=== PATIENT | female | born 1960 | race Caucasian/White ===

== ENCOUNTER 2017-01-28 08:42 | Inpatient (IN) | payer BC ==
[~2017-01-28] VITALS: Ht 162.6 cm; Wt 67.6 kg
[2017-01-28 08:42] VITALS: BP_SYST 124
[~2017-01-28 08:42] MED LIST: ESCI20TA PO; IMI50 SQ; LIDP TP; LORA-258 PO; OXYSR10 PO; PRO40 PO; SER100 PO; TOPI100T11 PO
--- NOTE | 2017-01-28 08:42 | NUR ---
Pt report received from HERBERT Miranda.
--- NOTE | 2017-01-28 08:42 | NUR ---
# 20 gauge angiocath placed to LFA. Use of asceptic technique. Opsite placed over site. Blood return noted. Blood for lab drawn from site. Flushed with 10 cc of normal saline. No evidence of infiltration noted. Patient tolerated well.
--- NOTE | 2017-01-28 08:42 | NUR ---
Arrived via S ambulance. jewel stringer reported compliant as per son to be anxiety. Patient states that she has been dizzy for 4 days with vomiting. Today she developed some weakness and fell with head strike on dresser, no evidence of trauma. Patient ambulated 50ft with feeling weak every 5-10 then nearly falling to ground and then standing up and walking steadily, no clear ataxia. Patient to ER bed 6 to gown for evaluation. Side rails up. Report given to Renzo GODINEZ.
[2017-01-28] MEDS ORDERED: MECLIZINE HCL 25 MG TABLET (ANITVERT) PO ONE (08:45)
[2017-01-28] MEDS ORDERED: METOCLOPRAMIDE HCL 10 MG/2 ML VIAL IVP ONE (08:45)
[2017-01-28] MEDS ORDERED: EXEM25TA5 PO (09:02)
[2017-01-28] MEDS ORDERED: ONDA4TAB22 PO (09:02)
[2017-01-28] MEDS ORDERED: BUPR1FIL3 SL (09:02)
[2017-01-28] MEDS ORDERED: TRAZ-126 PO (09:02)
[2017-01-28] MEDS ORDERED: GABA-533 PO (09:02)
[2017-01-28] MEDS ORDERED: CHOL100038 PO (09:02)
[2017-01-28] MEDS ORDERED: MAGN250T31 PO (09:02)
[2017-01-28] MEDS ORDERED: VIS50 PO (09:02)
[2017-01-28] MEDS ORDERED: ONAB200V IJ (09:02)
[2017-01-28] MEDS ORDERED: POTA20TA83 PO (09:02)
[2017-01-28] MEDS ORDERED: BUPR300T55 PO (09:02)
--- NOTE | 2017-01-28 09:02 | NUR ---
Medication reconciliation completed with information provided by PTS SON. Any prior medication reconciliation on file was reviewed and corrected.
[2017-01-28 09:09] LABS: BASOPHILS # (AUTO) 0.1 K/uL (0.0-0.2); BASOPHILS % (AUTO) 0.9 % (0.0-2.0); EOSINOPHILS # (AUTO) 0.1 K/uL (0.0-0.4); EOSINOPHILS % (AUTO) 1.8 % (0.0-4.0); HEMATOCRIT 42.1 % (36-48); HEMOGLOBIN 13.7 g/dL (12.0-16.0); LYMPHOCYTES # (AUTO) 1.4 K/uL (1.0-5.5); MEAN CORPUSCULAR HEMOGLOBIN 29 pg (27-31); MEAN CORPUSCULAR HGB CONC 33 % (32-36); MEAN CORPUSCULAR VOLUME 89 fL (79.0-98.0); MONOCYTES # (AUTO) 0.3 K/uL (0.0-1.0); MONOCYTES % (AUTO) 4.9 % (1.7-9.3); NEUTROPHILS # (AUTO) 4.3 K/uL (1.8-7.7); NEUTROPHILS % (AUTO) 70.4 % (40.0-70.0); PLATELET COUNT (AUTO) 137 K/uL (130-430); RED BLOOD CELL COUNT(AUTO) 4.74 MIL/uL (4.2-6.2); RED CELL DISTRIBUTION WIDTH 13.5 % (9.0-15.0); WHITE BLOOD COUNT (AUTO) 6.2 K/uL (4.8-10.8)
--- NOTE | 2017-01-28 09:10 | NUR ---
Portable CXR complete.
[2017-01-28 09:21] LABS: PROTHROMBIN TIME 10.7 SECS (9.5-12.5)
--- NOTE | 2017-01-28 09:34 | NUR ---
Pt to CT.
[2017-01-28 09:39] LABS: CREATININE 0.81 mg/dL (0.55-1.30); POTASSIUM 3.6 mmol/L (3.5-5.1)
--- NOTE | 2017-01-28 09:41 | NUR ---
Pt returns from CT. No needs verbalized at this time.
[2017-01-28 09:43] LABS: ALBUMIN 3.5 g/dL (3.4-4.8); TOTAL BILIRUBIN 0.5 mg/dL (0.0-1.0)
--- NOTE | 2017-01-28 10:50 | NUR ---
Patient will be admitted to care of Dr. Dave. Admitted to Tele unit. Will go to room 135. Belongings list completed. Summary report printed. Bedside report given to receiving RN.
--- NOTE | 2017-01-28 10:52 | NUR ---
Admission Note Received patient from ER with diagnosis of Ataxia. Initial Plan of Care discussed-patient verbalized understanding. Family at bedside. Oriented to room, call light, pain management and safety.
[2017-01-28 11:07] VITALS: BP_SYST 125
--- NOTE | 2017-01-28 11:08 | NUR ---
NEURO CONSULT Spoke with Leanna regarding request for consultation with Dr. Carter ([phone]) for reason: ataxia.
--- NOTE | 2017-01-28 11:35 | NUR ---
REPLACED PATIENT HEART MONITOR LEADS.
--- NOTE | 2017-01-28 11:49 | NUR ---
PATIENT LABS UNREMARKABLE. HEAD CT NEGATIVE. HISTORY OF MEDICATIONS WHICH HAVE SIDE EFFECTS. STANDING NORMALLY ON HER OWN STRENGTH IN RESTROOM ON PLACEMENT IN 114A. BILLING CHECKER NOTES LEFT HAND SHAKING. BLOOD GLUCOSE WAS 96 MG/DL. ADMISSION NURSE ALSO NOTES HISTORY OF DRY MOUTH LAST TWO DAYS.
--- NOTE | 2017-01-28 11:59 | NUR ---
CALL TO DIETARY RE: MENU REQUEST. KATIE WILL COME TO UNIT AND ASSIST PATIENT PICK HER LUNCH CHOICE.
--- NOTE | 2017-01-28 12:04 | NUR ---
REVIEW OF MEDICATION RECONCILIATION. SEROQUEL MATCHES THE LIST OF SIDE EFFECTS DESCRIBED.
--- NOTE | 2017-01-28 12:10 | NUR ---
KATIE [facility] AT PATIENT BEDSIDE TAKING ORDER AND PROVIDING LISTENING.
--- NOTE | 2017-01-28 12:25 | NUR ---
ASSIST OF PATIENT TO COMMODE. YELLOW CLEAR NON ODOROUS URINE OUT.
--- NOTE | 2017-01-28 13:26 | NUR ---
CALL TO MD BECAUSE PATIENT REQUESTING IN LAST 30 MINUTES TO START ALL OF HER MEDICATIONS. NOTIFIED MD OF PATIENT REQUEST AND MED LIST COMPLEXITY. MD TO REVIEW WITHIN 10 MINUTES.
[2017-01-28] MEDS ORDERED: ONDANSETRON 4 MG ODT TAB PO PRN (14:00)
[2017-01-28] MEDS ORDERED: POTASSIUM CHLORIDE 20 MEQ TAB.PRT.SR PO SCH (14:00)
[2017-01-28] MEDS ORDERED: SUMAtriptan SUCCINATE 6 MG/0.5 ML VIAL SUBCUT PRN (14:00)
[2017-01-28] MEDS ORDERED: PANTOPRAZOLE SODIUM 40 MG TAB PO ONE (14:15)
[2017-01-28] MEDS ORDERED: CITALOPRAM HYDROBROMIDE 20 MG TABLET PO ONE (14:15)
[2017-01-28] MEDS ORDERED: buPROPion HCL 150 MG XL TAB PO ONE (14:15)
[2017-01-28] MEDS ORDERED: LIDOCAINE PATCH 5% 1 EA TP ONE (14:30)
--- NOTE | 2017-01-28 14:31 | NUR ---
PATIENT ROUNDS. REQUEST FOR ZOFRAN. AFTERWARD WHEN ZOFRAN BROUGHT IN PATIENT REQUEST TO HAVE PROTONIX INSTEAD. NOTIFIED ALREADY PASSED PROTONIX. NOTIFIED PATIENT ABOUT THIS. VERBALIZES UNDERSTANDING.
--- NOTE | 2017-01-28 15:35 | NUR ---
MD MESSAGE GIVEN FROM PATIENT ABOUT SIDE EFFECTS OF GENERIC MEDICATION HAVING SOME ROLE IN HER DECLINE. SHE WANTED MD TO KNOW. NOTES THE PT IS RIGHT IN REGARD TO PSYCHIATRIC GENERICS.
[2017-01-28] MEDS: GABAPENTIN 300 MG CAPSULE PO SCH ×2 (15:39→21:59)
[2017-01-28] MEDS: GABAPENTIN 400 MG CAPSULE PO SCH ×2 (15:40→21:59)
--- NOTE | 2017-01-28 16:02 | NUR ---
ROUNDS AND SNACK OFFERED TO PATIENT.
[2017-01-28] MEDS ORDERED: CHOLECALCIFEROL (VITAMIN D3) 2,000 UNIT TABLET PO SCH (17:00)
--- NOTE | 2017-01-28 17:33 | NUR ---
PATIENT SLEEPING AT THIS TIME.
[2017-01-28 18:24] VITALS: BP_SYST 128
[2017-01-28] MEDS ORDERED: FAMOTIDINE 20 MG TABLET PO ONE (19:00)
--- NOTE | 2017-01-28 19:01 | NUR ---
Consult Called Reason for Consultation: ATAXIA Was consult called? Yes Person who was notified:Jojo Consulting Physician: Teo Carter MD Instrument Repairer Helper Specialty: Neurology Instrument Repairer Helper
[2017-01-28 19:30] VITALS: BP_SYST 140
--- NOTE | 2017-01-28 19:31 | NUR ---
HANDOFF ROUNDS. PATIENT ASKING ABOUT ANXIETY MEDICATION FOR SWALLOWING. SAYS SHE TAKES ATIVAN AT INCREASED DOSE 5MG. SAYS HER DOCTORS ARE ALWAYS AMAZED AT HOW MUCH ANESTHESIA IT TAKES FOR HER TO SLEEP DURING SURGERY.
--- NOTE | 2017-01-28 19:40 | NUR ---
INITIAL NOTE Patient alert, awake, verbally responsive with confusion. Respiration even and unlabored. Skin warm and dry to touch. SL intact to LFA, no redness, no swelling. Patient asked Ativan and stated that 5mg was the usual dose that she took. Will check with MD's ordered. Discussed the safety issue, use call light when need help, and plan of care, verbally understanding. Safety measure maintained. Call light within reached. Bed in low position, side rails up, bed alarm on. Will continue to monitor.
--- NOTE | 2017-01-28 19:55 | NUR ---
NOTE Patient stated that Ativan that she took was 0.5mg not 5mg and she wanted to know what the medication she will take at 9pm. Will shown the medication list to patient.
[2017-01-28] MEDS: LORazepam 1 MG TABLET PO PRN (20:24)
--- NOTE | 2017-01-28 20:24 | NUR ---
ATIVAN GIVEN Ativan 0.5mg PO given as ordered for anxiety. Patient stated "I can't swallow." after putting the pill into the mouth. Actually, noted the movement of the throat and heard sound of swallowing water. Explained to patient the pill will be melt and stayed with patient until calm. Call light within reached. Bed in low position, side rials up. Will continue to monitor.
[2017-01-28] MEDS ORDERED: PANTOPRAZOLE SODIUM 40 MG TAB PO SCH (21:00)
--- NOTE | 2017-01-28 21:35 | NUR ---
AMBULATED TO BATHROOM Ambulated and assisted to bathroom. No acute distress. Patient stated "I can swallow now." Told patient will give her medication after using bathroom.
[2017-01-28] MEDS: TOPIRAMATE 100 MG TABLET(Topamax) PO SCH (21:59)
[2017-01-28] MEDS: QUEtiapine FUMARATE 100 MG TABLET PO SCH (21:59)
[2017-01-28] MEDS: traZODone HCL 50 MG TABLET (DESYREL) PO SCH (22:00)
--- NOTE | 2017-01-28 23:20 | NUR ---
ROUND Patient resting on the bed and talking with roommate. No acute distress. Safety measure maintained. Bed alarm on, bed in low position, side rails up. Call light within reached. Continue to monitor.
[2017-01-29 00:43] VITALS: BP_SYST 102
--- NOTE | 2017-01-29 01:02 | NUR ---
ROUND Patient sleeping comfortable. Respiration even and unlabored. No acute distress. Safety measure maintained. Call light within reached. Bed in low position, side rails up, bed alarm on. Will continue to monitor.
--- NOTE | 2017-01-29 02:55 | NUR ---
ROUND Patient sleeping comfortable. No acute distress. Respiration even and unlabored. Safety measure maintained. Bed in low position, be alarm on, side rails up. Call light within reached. Continue to monitor.
--- NOTE | 2017-01-29 04:40 | NUR ---
ROUND Patient resting on the bed comfortable. No acute distress. Bed in low position, bed alarm on, side rails up. Call light within reached. Will continue to monitor.
[2017-01-29 04:48] VITALS: BP_SYST 135
[2017-01-29] MEDS: FAMOTIDINE 20 MG TABLET PO SCH ×3 (06:07→17:19)
[2017-01-29] MEDS: PANTOPRAZOLE SODIUM 40 MG TAB PO SCH ×3 (06:07→17:19)
--- NOTE | 2017-01-29 06:53 | NUR ---
CLOSING NOTE Patient resting on the bed. Respiration even and unlabored. Skin warm and dry to touch. SL intact to LFA, no redness, no swelling. All need met. Hourly rounding during shift. Safety measure maintained. Call light within reached. Bed in low position, side rails up, bed alarm on. Will endorse to morning shift nurse.
[2017-01-29 07:16] LABS: FREE T4 (FREE THYROXINE) 0.9 ng/dL (0.6-1.6); THYROID STIMULATING HORMONE 1.61 uIu/mL (0.34-4.82)
--- NOTE | 2017-01-29 07:20 | NUR ---
Handoff report with noc nurse.
[2017-01-29 07:49] LABS: IRON (SERUM) 84 mcg/dL (37-145); TOTAL IRON BIND. CAPACITY 255 ug/dL (250-450)
[2017-01-29] MEDS ORDERED: EXEMESTANE 25 MG PO SCH (09:00)
--- NOTE | 2017-01-29 09:09 | NUR ---
Call from patient to assist with putting on pt gown with student present.
--- NOTE | 2017-01-29 09:34 | NUR ---
Call from patient to assist setting up water basin.
[2017-01-29] MEDS: GABAPENTIN 400 MG CAPSULE PO SCH ×3 (09:39→21:36)
[2017-01-29] MEDS: LIDOCAINE PATCH 5% 1 EA TP SCH (09:39)
[2017-01-29] MEDS: CITALOPRAM HYDROBROMIDE 20 MG TABLET PO SCH (09:39)
[2017-01-29] MEDS: GABAPENTIN 300 MG CAPSULE PO SCH ×3 (09:39→21:35)
--- NOTE | 2017-01-29 09:39 | NUR ---
Patient meds given. Assist with student at this time to accomplish adl's of changing clothes.
[2017-01-29] MEDS: buPROPion HCL 150 MG XL TAB PO SCH (09:40)
[2017-01-29 09:48] VITALS: BP_SYST 125
[2017-01-29] MEDS: LORazepam 1 MG TABLET PO PRN ×2 (11:29→20:33)
--- NOTE | 2017-01-29 11:35 | NUR ---
PATIENT IS UPSET. SAYS HER SON WILL NOT BRING MEDICATION RANITIDINE BACK TO HER BECAUSE HE LEFT AFTER TELLING HER SHE WAS FAKING HER SYMPTOMS. SHE REQUEST MILK OF MAGNESIA FOR BM. CALL TO MD FOR BOTH MEDICATION REQUESTS.
[2017-01-29] MEDS ORDERED: COMMUNICATION ORDER XX ONE (11:45)
[2017-01-29] MEDS ORDERED: MILK OF MAGNESIA 30 ML UDC PO PRN (11:45)
[2017-01-29 12:53] VITALS: BP_SYST 128
[2017-01-29] MEDS ORDERED: THIAMINE HCL 100 MG TABLET PO ONE (13:00)
--- NOTE | 2017-01-29 13:15 | NUR ---
Call from patient to assist cleaning up peas from the floor she had spilled. Assisted to and from the commode. Patient urine is clear and yellow, non odorous. CHEMICAL SALES REPRESENTATIVE in to room to give coffee.
--- NOTE | 2017-01-29 14:37 | NUR ---
Med pass. Check on patient sleeping at this time.
--- NOTE | 2017-01-29 17:05 | NUR ---
PATIENT ROUNDS. FAMILY FRIEND, MYRIAM, PRESENT AND PATIENT WANTING HER TO BE ON CONTACTS LIST. PATIENT COULD NOT REMEMBER THE VISIT WITH NEUROLOGIST THIS MORNING. ORIENTED HER TO THE REQUEST FOR MRI DOCTOR HAD ENTERED WHEN HE SPOKE TO HER TOMORROW. SHE VERBALIZED UNDERSTANDING. SHE WAS FRUSTRATED SHE DID NOT REMEMBER AND SAYS THIS HAS HAPPENED FREQUENTLY TO HER IN THE PAST WEEK.
[2017-01-29 17:25] VITALS: BP_SYST 121
--- NOTE | 2017-01-29 19:26 | NUR ---
HANDOFF REPORT AT PATIENT BEDSIDE.
[2017-01-29 20:00] VITALS: BP_SYST 126
--- NOTE | 2017-01-29 20:00 | NUR ---
Rounds Received patient sitting at the edge of the bed resting, denies of any pain, no acute distress noted. IV site checked intact and patent, saline lock. Instructed patient to call nurse when getting out of bed, call light within reach, bed alarm on.
--- NOTE | 2017-01-29 20:15 | NUR ---
Medication Patient asking for another dose of MOM, ordered was daily prn, Informed Dr Dave new order received to changed MOM QID prn.
--- NOTE | 2017-01-29 20:30 | NUR ---
Ativan Ativan 0.5mg po given per patient request. will monitor. Instructed patient to call nurse when getting out of bed, call light within reach, bed alarm on.
[2017-01-29] MEDS: traZODone HCL 50 MG TABLET (DESYREL) PO SCH (21:35)
[2017-01-29] MEDS: TOPIRAMATE 100 MG TABLET(Topamax) PO SCH (21:36)
[2017-01-29] MEDS: QUEtiapine FUMARATE 100 MG TABLET PO SCH (21:36)
--- NOTE | 2017-01-30 | NUR ---
Rounds Patient resting quietly, no s/s of any pain, no acute distress noted. call light within reach, bed alarm on.
[2017-01-30 00:23] VITALS: BP_SYST 128
--- NOTE | 2017-01-30 02:00 | NUR ---
Rounds Patient resting quietly, no s/s of any pain, no acute distress noted. call light within reach, bed alarm on.
--- NOTE | 2017-01-30 04:15 | NUR ---
Rounds Patient resting quietly, no s/s of any pain, no acute distress noted. call light within reach, bed alarm on.
[2017-01-30 04:48] VITALS: BP_SYST 140
[2017-01-30] MEDS: FAMOTIDINE 20 MG TABLET PO SCH ×3 (06:04→17:32)
[2017-01-30] MEDS: PANTOPRAZOLE SODIUM 40 MG TAB PO SCH ×3 (06:04→17:33)
--- NOTE | 2017-01-30 06:31 | NUR ---
Closing notes Patient slept most of the night, no other changes noted on patient current condition.
--- NOTE | 2017-01-30 07:10 | NUR ---
PATIENT SLEEPING AT THIS TIME. HANDOFF ROUNDS.
--- NOTE | 2017-01-30 07:35 | NUR ---
ROUNDS TO PATIENT ASLEEP AT THIS TIME.
--- NOTE | 2017-01-30 09:25 | NUR ---
PATIENT GETTING NEW GOWN WITH BUSINESS REPRESENTATIVE. WILL RETURN TO ASSESS AND CHECK VITAL SIGNS.
[2017-01-30] MEDS: THIAMINE HCL 100 MG TABLET PO SCH (10:49)
[2017-01-30] MEDS: CITALOPRAM HYDROBROMIDE 20 MG TABLET PO SCH (10:49)
[2017-01-30] MEDS: GABAPENTIN 300 MG CAPSULE PO SCH ×3 (10:50→21:02)
[2017-01-30] MEDS: GABAPENTIN 400 MG CAPSULE PO SCH ×3 (10:50→21:02)
[2017-01-30] MEDS: buPROPion HCL 150 MG XL TAB PO SCH (10:50)
[2017-01-30] MEDS: LIDOCAINE PATCH 5% 1 EA TP SCH (10:50)
[2017-01-30] MEDS: LORazepam 1 MG TABLET PO PRN (11:02)
--- NOTE | 2017-01-30 11:16 | NUR ---
MEDICATION ROUNDS. PATIENT REQUEST SUBOXONE AND WANTS TO KNOW WHY IT WAS DISCONTINUED FIRST. ALSO REQUEST FOR ATIVAN GIVEN.
[2017-01-30 12:00] VITALS: BP_SYST 124
--- NOTE | 2017-01-30 12:00 | NUR ---
Per MD patient may use her own Suboxone as med is not on hospital formulary.
[2017-01-30] MEDS ORDERED: COMMUNICATION ORDER XX ONE (12:15)
--- NOTE | 2017-01-30 12:22 | NUR ---
Patient notified of medication from home, suboxone, may be used if brought in. Patient verbalized understanding.
--- NOTE | 2017-01-30 14:03 | NUR ---
Patient in MRI at this time.
--- NOTE | 2017-01-30 15:00 | NUR ---
PATIENT RETURN FROM MRI. ASSIST WITH TOILET EMPTYING AFTER USE BY PATIENT.
[2017-01-30 16:00] VITALS: BP_SYST 136
--- NOTE | 2017-01-30 16:00 | NUR ---
PATIENT SPILLED COFFEE. DRESSED PATIENT IN NEW GOWN. CHANGED BED LINEN AND UNDERPAD WHICH WHERE SOILED.
--- NOTE | 2017-01-30 17:45 | NUR ---
Son of patient brought in home medication orders and given to pharmacist at this time. Notified son, pharmacist to use meds and return supply to nurse upon discharge to give to the patient. He verbalizes understanding.
--- NOTE | 2017-01-30 18:11 | NUR ---
Doctor Tenzin rounds with patient this pm. Given update about her MRI as negative. Patient says she wanted them to find something.
--- NOTE | 2017-01-30 19:23 | NUR ---
Handoff rounds for noc nurse.
--- NOTE | 2017-01-30 19:49 | NUR ---
Rounds Received patient lying in bed resting quietly, no s/s of any pain, no acute distress noted. Call light within reach, bed alarm on. Will monitor patient.
[2017-01-30] MEDS: MILK OF MAGNESIA 30 ML UDC PO PRN (20:17)
[2017-01-30] MEDS: DOCUSATE SODIUM 250 MG CAPSULE PO SCH (20:18)
[2017-01-30 20:36] VITALS: BP_SYST 134
[2017-01-30] MEDS: traZODone HCL 50 MG TABLET (DESYREL) PO SCH (21:02)
[2017-01-30] MEDS: TOPIRAMATE 100 MG TABLET(Topamax) PO SCH (21:02)
[2017-01-30] MEDS: QUEtiapine FUMARATE 100 MG TABLET PO SCH (21:02)
[2017-01-30] MEDS: RANITIDINE 150 MG PO SCH (21:06)
--- NOTE | 2017-01-30 22:32 | NUR ---
PATIENT RESTING: Patient resting quietly. No acute distress noted. call light within reach, bed alarm on.
[2017-01-31] VITALS (7 sets, daily range): BP systolic 120–139
--- NOTE | 2017-01-31 00:19 | NUR ---
PATIENT RESTING: Patient resting quietly. No acute distress noted. call light within reach, bed alarm on.
--- NOTE | 2017-01-31 03:13 | NUR ---
PATIENT RESTING: Patient resting quietly. No acute distress noted. call light within reach, bed alarm on.
--- NOTE | 2017-01-31 04:53 | NUR ---
PATIENT RESTING: Patient resting quietly. No acute distress noted. call light within reach, bed alarm on.
--- NOTE | 2017-01-31 06:26 | NUR ---
Closing notes Patient slept most of the night, no other changes noted on patient current condition.
[2017-01-31] MEDS: FAMOTIDINE 20 MG TABLET PO SCH ×3 (06:40→16:40)
[2017-01-31] MEDS: PANTOPRAZOLE SODIUM 40 MG TAB PO SCH ×3 (06:40→16:40)
--- NOTE | 2017-01-31 08:00 | NUR ---
OPENING NOTES, RECEIVED PT IN BED, AAOX3, FORGETFUL AT TIMES, NO C/O PAIN, NO SOB, NO DISTRESS, VITALS WNL, CALLIGHT IN REACH, BED IN LOW POSITION. ASSISTED TO BEDSIDE COMMODE AND BACK TO BED, PT IS UNSTEADY. INSTRUCTED TO CALL FOR PAIN AND N/V, OR ANY NEED FOR ASSIST.
[2017-01-31] MEDS: buPROPion HCL 150 MG XL TAB PO SCH (09:10)
[2017-01-31] MEDS: GABAPENTIN 400 MG CAPSULE PO SCH ×3 (09:10→21:08)
[2017-01-31] MEDS: GABAPENTIN 300 MG CAPSULE PO SCH ×3 (09:10→21:09)
[2017-01-31] MEDS: DOCUSATE SODIUM 250 MG CAPSULE PO SCH ×2 (09:11→21:08)
[2017-01-31] MEDS: THIAMINE HCL 100 MG TABLET PO SCH (09:12)
[2017-01-31] MEDS: CITALOPRAM HYDROBROMIDE 20 MG TABLET PO SCH (09:13)
[2017-01-31] MEDS: LIDOCAINE PATCH 5% 1 EA TP SCH (09:13)
[2017-01-31] MEDS: RANITIDINE 150 MG PO SCH ×2 (09:23→21:48)
[2017-01-31] MEDS: NALOXONE SL SCH (09:23)
[2017-01-31] MEDS: LORazepam 1 MG TABLET PO PRN ×2 (09:32→16:36)
--- NOTE | 2017-01-31 10:00 | NUR ---
NOTES; PT IN BED, NO C/O PAIN, NO SOB, NO DISTRESS, CALLIGHT IN REACH, BED IN LOW POSITION. AMBULATED WITH PT IN HALLWAY AND BACK TO BED, PT IS UNSTEADY BUT THIKS SHE CAN WALK BY HERSELF. INSTRUCTED TO CALL FOR PAIN AND N/V, OR NEED FOR ASSIST. BED ALARM ON.
--- NOTE | 2017-01-31 11:50 | NUR ---
NOTES; PT IN BED, NO C/O PAIN, NO SOB, NO DISTRESS, CALLIGHT IN REACH, BED IN LOW POSITION. INSTRUCTED TO CALL FOR PAIN AND ASSITED AND NOT TO GET OUT OF BED ON HER OWN TO PREVENT FALL . BED ALARM ON. 1130 MEDS OFFERED AND TAKEN.
--- NOTE | 2017-01-31 13:34 | NUR ---
dr harris here to see patient. discussed with pt re need to go to rehab. pt verbalized understanding.pt up by the sink, pt stated she didnt call for help as she wants to try it on her own and see how much she can. Pt was educated on fall risk, pt verbalized understanding
--- NOTE | 2017-01-31 14:00 | NUR ---
NOTES; PT IN BED, NO C/O PAIN, NO SOB, NO DISTRESS, CALLIGHT IN REACH, BED IN LOW POSITION. INSTRUCTED TO CALL FOR PAIN AND ASSITED AND NOT TO GET OUT OF BED ON HER OWN TO PREVENT FALL . BED ALARM ON.
--- NOTE | 2017-01-31 16:00 | NUR ---
NOTES; PT IN BED, STATED SHE WANTED TO STAND. OFFERED MY HELP BUT PT CHANGED HER MIND. NO C/O PAIN, NO SOB, NO DISTRESS, CALLIGHT IN REACH, BED IN LOW POSITION. INSTRUCTED TO CALL FOR PAIN AND ASSITED AND NOT TO GET OUT OF BED ON HER OWN TO PREVENT FALL . BED ALARM ON.
[2017-01-31] MEDS: MILK OF MAGNESIA 30 ML UDC PO PRN ×2 (16:35→21:12)
--- NOTE | 2017-01-31 16:38 | NUR ---
DISCHARGE PLANNING DC Planning order for [facility] evaluation. Faxed referral to [facility] Ext:[phone] requesting to evaluate patient for short term placement. Will follow up.
--- NOTE | 2017-01-31 18:30 | NUR ---
CLOSING NOTES; PT IN BED, NO C/O PAIN, NO SOB, NO DISTRESS. PT REMINDED TO CALL FOR ASSIST TO PREVENT FALLING. PT VERBALIZED UNDERSTANDING. IV ACCESS DRY AND INTACT. CALL LIGHT IN REACH. BED IN LOW POSITION. BED ALARM ON. WILL ENDORSE TO NIGHT RN.
--- NOTE | 2017-01-31 20:05 | NUR ---
PM ASSESSMENT: PATIENT SEEN WALKING TO SINK STEADILY TO WASH HANDS. ALERT/ ORIENTED X.WALKS WOBBLY GOING BACK TO BED AT TIMES.DENIES DIZZINESS,HAD HEADACHE EARLIER.HAS SLIGHT HAND TREMORS. REQUESTING FOR HER MEDS/SNACKS/NEEDS TO GO TO BATHROOM. TOLD HER WILL DO ONE AT A TIME. ASKING FOR HER ATIVAN. COMPLAIN OF SALINE LOCK SITE HURTING. ITS REDDISH AND TENDER. TOLD HER WILL CHANGE TO A NEW ONE. VITAL SIGNS TAKEN ,STABLE. VOIDED VIA BEDSIDE COMMODE EARLIER. EMPTIED.USE BRP AT TIMES.TURNED BED ALARM ON. INSTRUCTED TO ALWAYS USE CALL LIGHT FOR ANY NEED OR USE BSC /GOES TO BATHROOM WITH UNDERSTANDING BUT NEEDS FREQUENT REMINDERS.. FALL PRECAUTIONS EMPASIZED. REGULAR HEART RATE. DENIES SOB NOR COUGH. WILL MONITOR CLOSELY.
--- NOTE | 2017-01-31 20:45 | NUR ---
HYGIENE: SPILLED COLD COFFEE ON HER GOWN/TO BLANKETS. WHOLE BED CHANGED WITH NEW GOWN.
--- NOTE | 2017-01-31 20:50 | NUR ---
NUTRITION/VOID: KEEP ASKING FOR SNACK ONE AT A TIME,COFFEE,CRACKERS,JUICES.NO AMIRA CRACKERS , FEELS NOT HAPPY,REFUSE TURKEY SANDWICH. JELLO / SALTINE GIVEN. ASSISTED TO BATHROOM TO VOID.
--- NOTE | 2017-01-31 21:00 | NUR ---
NEW IV LINE: IV SITE REDDISH AND TENDER. NEW IV LINE INSERTED BY PEDRO DELGADILLOERIE TO LEFT FOREARM WITH BLOOD RETURN. SALINE LOCK.
[2017-01-31] MEDS: TOPIRAMATE 100 MG TABLET(Topamax) PO SCH (21:09)
[2017-01-31] MEDS: QUEtiapine FUMARATE 100 MG TABLET PO SCH (21:09)
[2017-01-31] MEDS: traZODone HCL 50 MG TABLET (DESYREL) PO SCH (21:47)
--- NOTE | 2017-01-31 22:00 | NUR ---
MEDS ADMIN: ALL DUE PO MEDS GIVEN .EXPLAINED EFFECTS AND SIDE EFFECTS OF EACH WITH UNDERSTANDING. TOLD HER SHE GETS HIGH DOSES OF SLEEPING AND ANXIETY MEDS ,SAID SHE IS USED TO IT MOSTLY IT DOES NOT WORK AND TOLD RN NOT TO REDUCE ANY DOSES. WILL MONITOR CLOSELY.
--- NOTE | 2017-01-31 22:35 | NUR ---
ASSISTED TO BSC TO VOID.FALL PRECAUTION OBSERVED.
--- NOTE | 2017-01-31 23:15 | NUR ---
VERY SLEEPY THIS TIME. WILL MONITOR CLOSELY.DRUNK WATER,FEELS THIRSTY.
--- NOTE | 2017-02-01 00:30 | NUR ---
ROUNDS: PATIENT SOUND ASLEEP. BREATHING PATTERN SLOW BUT REGULAR.
--- NOTE | 2017-02-01 01:30 | NUR ---
ROUNDS: PATIENT SOUND ASLEEP.BLANKET PROVIDED.
--- NOTE | 2017-02-01 03:30 | NUR ---
PATIENT SOUND ASLEEP, DID CHANGED POSITION. VITAL SIGNS TAKEN BY MEDICAL OFFICE SCHEDULER.
[2017-02-01 04:17] VITALS: BP_SYST 119
--- NOTE | 2017-02-01 04:30 | NUR ---
VITAL SIGNS TAKEN BY COLLECTOR OF PORT WITH EYES CLOSE. NO ACUTE DISTRESS.
--- NOTE | 2017-02-01 06:30 | NUR ---
CONTINUE TO SLEEP.
[2017-02-01] MEDS: PANTOPRAZOLE SODIUM 40 MG TAB PO SCH ×2 (06:55→12:06)
[2017-02-01] MEDS: FAMOTIDINE 20 MG TABLET PO SCH ×2 (06:55→12:06)
--- NOTE | 2017-02-01 07:20 | NUR ---
CLOSING: PATIENT WOKE UP .NEEDS TO GO BATHROOM TO VOID. ASSISTED TO BATHROOM WITH WOBBLY WALK. BACK TO BED. DUE MEDS GIVEN. STARTED HAVING BREAKFAST. ALL NEEDS WERE ATTENDED. NO ACUTE DISTRESS. CALL LIGHT WITHIN REACH. BED IN LOW POSITION. BED ALARM ON AT ALL TIMES.
[2017-02-01 08:00] VITALS: BP_SYST 125
--- NOTE | 2017-02-01 08:00 | NUR ---
AM NOTES PT IN BED AWAKE, ALERT AND ORIENTED. COMPLAIN OF MILD PAIN ON THE RT HIP. ON ROOM AIR. DENIES ANY SHORTNESS OF BREATH. IVL. AMBULATE WITH ASSISTANCE. V/S STABLE AT THIS TIME. CALL LIGHT IN REACH. ENC. TO CALL FOR HELP AT ALL TIMES. WILL MONITOR.
[2017-02-01] MEDS: LORazepam 1 MG TABLET PO PRN ×2 (08:10→13:28)
--- NOTE | 2017-02-01 09:03 | NUR ---
Nutrition Update Asim Scale 17 noted. Pt admitted for ataxia. Diet: regular BMI: 25.6 kg/m2 RD to follow per nutrition care standards.
--- NOTE | 2017-02-01 09:22 | NUR ---
therapy Pt working with therapy at this time. denies any pain. no distress noted.
[2017-02-01] MEDS: DOCUSATE SODIUM 250 MG CAPSULE PO SCH (09:49)
[2017-02-01] MEDS: CITALOPRAM HYDROBROMIDE 20 MG TABLET PO SCH (09:50)
[2017-02-01] MEDS: GABAPENTIN 400 MG CAPSULE PO SCH ×2 (09:50→14:23)
[2017-02-01] MEDS: THIAMINE HCL 100 MG TABLET PO SCH (09:50)
[2017-02-01] MEDS: buPROPion HCL 150 MG XL TAB PO SCH (09:50)
--- NOTE | 2017-02-01 09:50 | NUR ---
PAIN Complain of pain on the right hip. Dr. harris making rounds and made aware. Lidoderm patch applied at this time.
[2017-02-01] MEDS: NALOXONE SL SCH (09:51)
[2017-02-01] MEDS: GABAPENTIN 300 MG CAPSULE PO SCH ×2 (09:51→14:23)
[2017-02-01] MEDS: RANITIDINE 150 MG PO SCH (09:51)
[2017-02-01] MEDS: LIDOCAINE PATCH 5% 1 EA TP SCH (09:51)
--- NOTE | 2017-02-01 10:32 | NUR ---
DISCHARGE PLANNING Spoke with [facility] liaison who will come and evaluation patient today. Will follow up. Addendum: 02/01/17 at 1140 by Johanna Morse DP Spoke with Merlyn dos santos [facility] patient accepted and pending insurance auth for bed assignment. Placed transportation packet in nurses station. Contracted ambulance [facility] . Addendum: 02/01/17 at 1548 by Johanna GARCIA Patient assigned to room 1114B at [facility] HERBERT to report [phone] Ext:[phone], bed available after 6pm today. Called patient quinten Galaviz [phone] left voice message requesting return call back. LESIA Barnes stated patient is aware of discharge. HERBERT Juares made aware. Called contracted ambulance [facility] [phone] spoke with Jhonathan arranged S transport lemon picker 6:30pm. Placed transportation packet in nursing station.
[2017-02-01] MEDS ORDERED: HYDROcodone/ACETAMIN 5-325 MG TAB (NORCO/ VICODIN) PO PRN (10:45)
[2017-02-01 12:00] VITALS: BP_SYST 124
[2017-02-01] MEDS: MILK OF MAGNESIA 30 ML UDC PO PRN (12:11)
--- NOTE | 2017-02-01 13:48 | NUR ---
Bed Alarm: While making rounds Pt upset stating she doesn't want bed alarm activated. Pt stated "I wont run away and I like my freedom" I explained to patient rational and safety due to medications making her weak or dizzy and some procedures. She stated I don't care I want it off. I again tried to reassure patient but she is insistent alarm be taken off. Bed alarm off. SAMPLER AND TEST PREPARER and charge nurse aware alarm is off.
--- NOTE | 2017-02-01 13:51 | NUR ---
DC PLANNING: LM to [facility] voice mail #[phone] and to Samina James # [phone], ref#[id number]-- requesting snf/rehab authorization. Per the there will be a return call in one business day. --CM to f/u. Addendum: 02/01/17 at 1521 by Molly Pozo RN >> Received and call back from [employer] soil conservation technician for [facility] # [phone]. Updated the pt. status to her and received authorization #[id number] for [facility] for one week from 02/01 to 02/07/17 and expecting pt. dc on 02/08/17. [facility] staff to contact [facility] for further authorization needs. [employer] will also inform [facility] today. -- TVRN
--- NOTE | 2017-02-01 14:30 | NUR ---
PAIN PT COMPLAINS OF RT HIP PAIN. PAIN MEDS NOT DUE YET. CALLED DR. GARCIA. WAITING MD TO CALL BACK.
[2017-02-01] MEDS ORDERED: HYDROcodone/ACETAMIN 10-325 MG TAB PO PRN (15:15)
[2017-02-01 16:00] VITALS: BP_SYST 119
[2017-02-01 18:02] VITALS: BP_SYST 124
--- NOTE | 2017-02-01 18:56 | NUR ---
DISCHARGE D/C PT TO [facility]BULANCE. COMPLAIN OF MODERATE PAIN, MEDICATED WITH NORCO. ARM BAND REMOVED. V/S STABLE. NO DISTRESS NOTED. ALL BELONGINGS SENT TO AMBULANCE STAFF.
[2017-02-03] MEDS ORDERED: CHOLECALCIFEROL (VITAMIN D3) 2,000 UNIT TABLET PO SCH (09:00)
== END 2017-02-01 19:08 | DRG 93 ==
LOC: SED 08:42 → STU 10:38 → SMU 01-30 13:52
PROVIDERS: ADMIT Internal Medicine; ATTEND Internal Medicine
DX: R27.0 Ataxia, unspecified (principal); F41.9 Anxiety disorder, unspecified; F32.9 Major depressive disorder, single episode, unspecified; I10 Essential (primary) hypertension; G43.909 Migraine, unspecified, not intractable, without status migrainosus; Z85.3 Personal history of malignant neoplasm of breast; Z90.11 Acquired absence of right breast and nipple; Z98.84 Bariatric surgery status; Z88.1 Allergy status to other antibiotic agents; Z88.5 Allergy status to narcotic agent; Z88.2 Allergy status to sulfonamides; Z79.899 Other long term (current) drug therapy
CPT/HCPCS: 36415; 70450-TC; 70551; 71010; 72141; 80053; 82550-TC; 82607; 82746; 83540-TC; 83550-TC; 83735-TC; 83880; 84439; 84443-TC; 84484; 85025; 85610-TC; 85730-TC; 93005; 96374; 97110-GP; 97116-GP; 97530-GP; 99285; J2765; J8597; Q0162

== ENCOUNTER 2017-10-15 16:33 | Inpatient (IN) | payer BC ==
[~2017-10-15] VITALS: Ht 165.1 cm; Wt 72.6 kg
[2017-10-15 16:33] VITALS: BP_SYST 129
[~2017-10-15 16:33] MED LIST changes: +BUPR300T55 PO; +CHOL100038 PO; +EXEM25TA5 PO; +GABA-533 PO; -IMI50 SQ; +ONDA4TAB22 PO; -OXYSR10 PO; +POTA20TA83 PO; +TRAZ-126 PO; +VIS50 PO
[2017-10-15] MEDS ORDERED: HYDROmorphone 1 MG INJ. 1 MG/ML AMPUL IVP ONE (17:00)
[2017-10-15] MEDS ORDERED: NACL 0.9% 1,000 ML IV ONE (17:01)
[2017-10-15 17:32] LABS: BASOPHILS % (AUTO) 0.3 % (0.0-2.0); EOSINOPHILS % (AUTO) 0.4 % (0.0-4.0); HEMATOCRIT 38.9 % (36-48); HEMOGLOBIN 12.6 g/dL (12.0-16.0); LYMPHOCYTES # (AUTO) 1.5 K/uL (1.0-5.5); MEAN CORPUSCULAR HEMOGLOBIN 27 pg (27-31); MEAN CORPUSCULAR HGB CONC 33 % (32-36); MEAN CORPUSCULAR VOLUME 83 fL (79.0-98.0); MONOCYTES # (AUTO) 0.4 K/uL (0.0-1.0); MONOCYTES % (AUTO) 3.5 % (1.7-9.3); NEUTROPHILS # (AUTO) 8.7 K/uL (1.8-7.7); NEUTROPHILS % (AUTO) 81.8 % (40.0-70.0); PLATELET COUNT (AUTO) 211 K/uL (130-430); RED BLOOD CELL COUNT(AUTO) 4.69 MIL/uL (4.2-6.2); RED CELL DISTRIBUTION WIDTH 19.6 % (9.0-15.0); WHITE BLOOD COUNT (AUTO) 10.6 K/uL (4.8-10.8)
[2017-10-15] MEDS ORDERED: PRO40 PO (17:47)
[2017-10-15] MEDS ORDERED: FOLI-43 PO (17:50)
[2017-10-15] MEDS ORDERED: GABA-531 PO (17:50)
[2017-10-15] MEDS ORDERED: ESCI20TA PO (17:50)
[2017-10-15 17:52] LABS: CREATININE 0.74 mg/dL (0.55-1.30)
[2017-10-15 17:53] LABS: PROTHROMBIN TIME 10.4 SECS (9.5-12.5)
[2017-10-15 17:57] LABS: ALBUMIN 3.9 g/dL (3.4-4.8); TOTAL BILIRUBIN 0.3 mg/dL (0.0-1.0)
[2017-10-15] MEDS ORDERED: DOXE10CA2 PO (17:59)
[2017-10-15] MEDS ORDERED: EXEM25TA5 PO (17:59)
[2017-10-15] MEDS ORDERED: TIZA4TAB11 PO (17:59)
[2017-10-15] MEDS ORDERED: BUPR100T13 PO (17:59)
[2017-10-15] MEDS ORDERED: TRAZ-126 PO (17:59)
[2017-10-15 19:23] LABS: BILIRUBIN,URINE NEGATIVE (NEGATIVE); BLOOD, URINE NEGATIVE (NEGATIVE); CLARITY/URINE CLEAR (CLEAR); COLOR,URINE YELLOW (YELLOW); GLUCOSE,URINE NEGATIVE (NEGATIVE); KETONES,URINE NEGATIVE (NEGATIVE); LEUKOCYTE ESTERASE ,URINE NEGATIVE (NEGATIVE); NITRITE, URINE NEGATIVE (NEGATIVE); PROTEIN URINE TRACE (NEGATIVE)
[2017-10-15] MEDS ORDERED: MORPHINE 2 MG/ML INJ. SYRINGE IVP PRN (19:30)
[2017-10-15] MEDS ORDERED: ACETAMINOPHEN 325 MG TABLET PO PRN (19:30)
[2017-10-15] MEDS ORDERED: ONDANSETRON HCL 4 MG/2 ML VIAL IVP PRN (19:30)
[2017-10-15 19:33] LABS: BACTERIA,URINE FEW /HPF (None Seen); RBC,URINE 0-3 /HPF (0-3)
[2017-10-15 19:34] LABS: FINE GRANULAR CASTS,URINE 0-10 /LPF (None Seen); MUCUS,URINE 1+ /LPF (None Seen)
[2017-10-15 19:44] VITALS: BP_SYST 154
[2017-10-15] MEDS ORDERED: SIMETHICONE 80 MG TAB.CHEW PO PRN (20:45)
[2017-10-15] MEDS ORDERED: POTASSIUM CHLORIDE 20 MEQ TAB.PRT.SR PO PRN (20:45)
[2017-10-15] MEDS ORDERED: traMADol HCL HCL 50 MG TABLET (ULTRAM) PO PRN (20:45)
[2017-10-15] MEDS ORDERED: ZOLPIDEM TARTRATE 5 MG TABLET PO PRN (20:45)
[2017-10-15] MEDS ORDERED: LORazepam 2 MG/ML VIAL IVP SCH (20:45)
[2017-10-15] MEDS ORDERED: BISACODYL 10 MG/SUPPOSITORY RC PRN (20:45)
[2017-10-15] MEDS: NACL 0.9% 1,000 ML IV SCH (20:58)
[2017-10-15] MEDS: DOCUSATE SODIUM 100 MG CAPSULE PO SCH (21:18)
[2017-10-15] MEDS: HYDROmorphone 2 MG/ML VIAL IVP PRN (21:19)
[2017-10-15 21:24] LABS: FREE T4 (FREE THYROXINE) 0.6 ng/dL (0.6-1.6); THYROID STIMULATING HORMONE 0.8 uIu/mL (0.34-4.82)
[2017-10-15] MEDS ORDERED: tiZANidine HCL 4 MG TABLET PO SCH (22:15)
[2017-10-16] VITALS (7 sets, daily range): BP systolic 125–153
[2017-10-16] MEDS: HYDROmorphone 2 MG/ML VIAL IVP PRN ×5 (01:24→23:52)
[2017-10-16] MEDS: ZOLPIDEM TARTRATE 5 MG TABLET PO PRN ×2 (02:20→21:34)
[2017-10-16 02:52] LABS: CALCIUM 9.1 mg/dL (8.4-11.0); CREATININE 0.73 mg/dL (0.55-1.30); POTASSIUM 3.8 mmol/L (3.5-5.1)
[2017-10-16 03:13] LABS: PHOSPHORUS 3.8 mg/dL (2.7-4.5)
[2017-10-16 07:09] LABS: BASOPHILS % (AUTO) 0.2 % (0.0-2.0); EOSINOPHILS # (AUTO) 0.1 K/uL (0.0-0.4); EOSINOPHILS % (AUTO) 1.4 % (0.0-4.0); HEMATOCRIT 40.3 % (36-48); HEMOGLOBIN 13.3 g/dL (12.0-16.0); LYMPHOCYTES # (AUTO) 2.4 K/uL (1.0-5.5); LYMPHOCYTES % (AUTO) 25.2 % (20.5-51.5); MEAN CORPUSCULAR HEMOGLOBIN 28 pg (27-31); MEAN CORPUSCULAR HGB CONC 33 % (32-36); MEAN CORPUSCULAR VOLUME 83 fL (79.0-98.0); MONOCYTES # (AUTO) 0.6 K/uL (0.0-1.0); MONOCYTES % (AUTO) 6.3 % (1.7-9.3); NEUTROPHILS # (AUTO) 6.6 K/uL (1.8-7.7); NEUTROPHILS % (AUTO) 66.9 % (40.0-70.0); PLATELET COUNT (AUTO) 235 K/uL (130-430); RED BLOOD CELL COUNT(AUTO) 4.85 MIL/uL (4.2-6.2); RED CELL DISTRIBUTION WIDTH 19.9 % (9.0-15.0); WHITE BLOOD COUNT (AUTO) 9.7 K/uL (4.8-10.8)
[2017-10-16] MEDS ORDERED: PANTOPRAZOLE SODIUM 40 MG TAB PO SCH (09:00)
[2017-10-16] MEDS ORDERED: ESCITALOPRAM OXALATE 10 MG TABLET PO SCH (09:00)
[2017-10-16] MEDS: CITALOPRAM HYDROBROMIDE 20 MG TABLET PO SCH (09:16)
[2017-10-16] MEDS: GABAPENTIN 300 MG CAPSULE PO SCH ×3 (09:17→21:33)
[2017-10-16] MEDS: DOCUSATE SODIUM 100 MG CAPSULE PO SCH ×2 (09:17→21:31)
[2017-10-16] MEDS: FOLIC ACID 1 MG TABLET PO SCH (09:17)
[2017-10-16] MEDS ORDERED: METOPROLOL TARTRATE 25 MG TABLET PO ONE (09:45)
[2017-10-16] MEDS ORDERED: ASPIRIN 81 MG TAB.CHEW PO ONE (09:45)
[2017-10-16] MEDS ORDERED: ATORVASTATIN 20 MG TABLET PO ONE (10:00)
[2017-10-16] MEDS ORDERED: LISINOPRIL 5 MG TABLET PO ONE (10:00)
[2017-10-16] MEDS: LORazepam 2 MG/ML VIAL IVP PRN (11:02)
[2017-10-16] MEDS: ATORVASTATIN 20 MG TABLET PO SCH (11:02)
[2017-10-16] MEDS: NACL 0.9% 1,000 ML IV SCH (11:03)
[2017-10-16] MEDS ORDERED: AMMO226L TP (11:37)
[2017-10-16] MEDS ORDERED: HYDROmorphone 2 MG/ML VIAL IVP PRN (13:45)
[2017-10-16] MEDS ORDERED: tiZANidine HCL 4 MG TABLET PO SCH (15:00)
[2017-10-16] MEDS ORDERED: AMMONIUM LACTATE TP PRN (17:00)
[2017-10-16] MEDS ORDERED: traZODone HCL 50 MG TABLET (DESYREL) PO SCH (21:00)
[2017-10-16] MEDS ORDERED: AMMONIUM LACTATE 226 GM LOTION TP SCH (21:00)
[2017-10-16] MEDS: METOPROLOL TARTRATE 25 MG TABLET PO SCH (21:32)
[2017-10-16] MEDS: OMEPRAZOLE 20 MG CAPSULE.DR (PriLOSEC) PO SCH (21:33)
[2017-10-16] MEDS: DOXEPIN HCL (SINEquan) 10 MG CAPSULE PO SCH (21:33)
[2017-10-16] MEDS ORDERED: buPROPion HCL 100 MG TABLET ONE (23:42)
[2017-10-16] MEDS ORDERED: buPROPion HCL 75 MG TABLET ONE (23:43)
[2017-10-16] MEDS: buPROPion HCL 100 MG TABLET PO SCH (23:49)
[2017-10-17] VITALS: BP_SYST 116
[2017-10-17] MEDS: NACL 0.9% 1,000 ML IV SCH ×2 (04:36→21:16)
[2017-10-17] MEDS: HYDROmorphone 2 MG/ML VIAL IVP PRN ×3 (05:55→20:03)
[2017-10-17 08:00] VITALS: BP_SYST 111
[2017-10-17] MEDS: CITALOPRAM HYDROBROMIDE 20 MG TABLET PO SCH (08:11)
[2017-10-17] MEDS: ATORVASTATIN 20 MG TABLET PO SCH (08:11)
[2017-10-17] MEDS: OMEPRAZOLE 20 MG CAPSULE.DR (PriLOSEC) PO SCH ×2 (08:11→21:10)
[2017-10-17] MEDS: DOCUSATE SODIUM 100 MG CAPSULE PO SCH ×2 (08:12→21:09)
[2017-10-17] MEDS: ASPIRIN 81 MG TAB.CHEW PO SCH (08:12)
[2017-10-17] MEDS: LISINOPRIL 5 MG TABLET PO SCH (08:12)
[2017-10-17] MEDS: METOPROLOL TARTRATE 25 MG TABLET PO SCH ×2 (08:13→21:11)
[2017-10-17] MEDS: FOLIC ACID 1 MG TABLET PO SCH (08:13)
[2017-10-17] MEDS: GABAPENTIN 300 MG CAPSULE PO SCH ×3 (08:13→21:09)
[2017-10-17] MEDS: ENOXAPARIN SODIUM 40 MG/0.4 ML SYRINGE SUBCUT SCH (08:37)
[2017-10-17] MEDS ORDERED: ALPRAZolam 0.25 MG TABLET PO PRN (09:30)
[2017-10-17] MEDS ORDERED: GADOPENTETATE DIMEGLUMINE 15 ML VIAL IV ONE (10:04)
[2017-10-17 12:36] VITALS: BP_SYST 110
[2017-10-17] MEDS: LORazepam 2 MG/ML VIAL IVP PRN (14:43)
[2017-10-17 17:09] VITALS: BP_SYST 127
[2017-10-17 20:00] VITALS: BP_SYST 120
[2017-10-17] MEDS: buPROPion HCL 100 MG TABLET PO SCH (21:00)
[2017-10-17] MEDS: DOXEPIN HCL (SINEquan) 10 MG CAPSULE PO SCH (21:10)
[2017-10-17] MEDS: ZOLPIDEM TARTRATE 5 MG TABLET PO PRN (21:24)
[2017-10-17 23:06] LABS: HEMOGLOBIN A1C 5.4 % (4.8-5.6)
[2017-10-18 01:23] LABS: T4 (THYROXINE) 6.4 ug/dL (4.5-12.0)
[2017-10-18] MEDS: HYDROmorphone 2 MG/ML VIAL IVP PRN (07:04)
[2017-10-18] MEDS: LORazepam 2 MG/ML VIAL IVP PRN (07:30)
[2017-10-18 07:45] VITALS: BP_SYST 131
[2017-10-18] MEDS ORDERED: HYDROmorphone 2 MG/ML VIAL IVP PRN (08:30)
[2017-10-18] MEDS: FOLIC ACID 1 MG TABLET PO SCH (09:06)
[2017-10-18] MEDS: CITALOPRAM HYDROBROMIDE 20 MG TABLET PO SCH (09:06)
[2017-10-18] MEDS: METOPROLOL TARTRATE 25 MG TABLET PO SCH (09:08)
[2017-10-18] MEDS: DOCUSATE SODIUM 100 MG CAPSULE PO SCH (09:08)
[2017-10-18] MEDS: ASPIRIN 81 MG TAB.CHEW PO SCH (09:09)
[2017-10-18] MEDS: LISINOPRIL 5 MG TABLET PO SCH (09:09)
[2017-10-18] MEDS: ATORVASTATIN 20 MG TABLET PO SCH (09:09)
[2017-10-18] MEDS: OMEPRAZOLE 20 MG CAPSULE.DR (PriLOSEC) PO SCH (09:17)
[2017-10-18] MEDS: ENOXAPARIN SODIUM 40 MG/0.4 ML SYRINGE SUBCUT SCH (09:17)
[2017-10-18] MEDS: GABAPENTIN 300 MG CAPSULE PO SCH (09:17)
[2017-10-18 11:33] VITALS: BP_SYST 126
[2017-10-18] MEDS ORDERED: LORazepam 1 MG TABLET PO ONE (12:00)
[2017-10-18] MEDS ORDERED: HYDROmorphone 2 MG TAB PO ONE (12:00)
[2017-10-18 12:46] VITALS: BP_SYST 126
== END 2017-10-18 13:15 | disposition home or self-care (01) | DRG 74 ==
LOC: SED 16:33 → SMU 19:16 → MERGE 19:16 → SMU 19:35 → STU 10-16 09:43 → SMU 10-16 15:38
PROVIDERS: ADMIT Family Medicine; ATTEND Family Medicine
DX: G90.9 Disorder of the autonomic nervous system, unspecified (principal); F11.20 Opioid dependence, uncomplicated; F32.1 Major depressive disorder, single episode, moderate; W19.XXXA Unspecified fall, initial encounter; K21.9 Gastro-esophageal reflux disease without esophagitis; R29.6 Repeated falls; M47.812 Spondylosis without myelopathy or radiculopathy, cervical region; I10 Essential (primary) hypertension; F19.10 Other psychoactive substance abuse, uncomplicated; F41.9 Anxiety disorder, unspecified; T43.95XA Adverse effect of unspecified psychotropic drug, initial encounter; Z90.710 Acquired absence of both cervix and uterus; Z91.19 Patient's noncompliance with other medical treatment and regimen; Z91.81 History of falling; Z85.3 Personal history of malignant neoplasm of breast; Z90.13 Acquired absence of bilateral breasts and nipples; Z92.3 Personal history of irradiation; Z98.84 Bariatric surgery status; Z92.21 Personal history of antineoplastic chemotherapy; Y93.89 Activity, other specified; Y92.89 Other specified places as the place of occurrence of the external cause; Y99.8 Other external cause status; Z88.1 Allergy status to other antibiotic agents; Z88.5 Allergy status to narcotic agent; Z88.2 Allergy status to sulfonamides; Z79.899 Other long term (current) drug therapy
CPT/HCPCS: 36415; 70450-TC; 70553; 72125-TC; 80048; 80053; 80061; 81000-TC; 82150-TC; 82550-TC; 83036; 83690-TC; 83735-TC; 83880; 84100-TC; 84436; 84439; 84443-TC; 84479; 84484; 85025; 85610-TC; 85730-TC; 93005; 93306; 95816; 96374; 99285; A9579; J1170; J1650; J2060; J7030; J7120